=== PATIENT | male | born 1965 | race Caucasian/White ===

== ENCOUNTER → 2017-01-01 | Day surgery (SDC) | payer OTHER ==
[~2017-01-01] VITALS: Ht 177.8 cm; Wt 90.7 kg
[~2017-01-01] MED LIST: ALPRAZOLAM1 MG PO; CLARITIN10 MG PO; CYCLOBENZAPRINE5 M1 PO; DIVALPROEX SOD500 MG PO; ENABLEX15 MG PO; HYSINGLA ER30 MG PO; LEVEMIR FL100 UNIT/1 SC; LEVEMIR100 UNIT/1 SC; LEVOTHYROXIN0.112 MG PO; LISINOPRIL5 M1; MEDROL4 MG PO; MELOXICAM7.5 M1; MELOXICAM7.5 MG PO; METFORMIN1000 MG PO; MIRTAZAPINE15 MG PO; NEURONTIN300 MG PO; NORVASC 5MG TAB5 MG PO; OXY IR5 MG PO; OXYCODONE5 MG PO; PRINIVIL 5MG5 MG PO; SOMA 350MG TAB350 MG PO; TRADJENTA5 MG PO; VOLTAREN GEL1% TOP; XANAX0.5 M1; ZOCOR 40MG TAB40 MG PO; [UNRECOGNIZED DRUG - OTHER] TOP
--- NOTE | 2017-01-02 12:45 | Operative Report ---
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 The wrist the benefits and expected outcomes. She is requesting the procedure roll over the PIP joint is in a reasonable functional position. Constant trauma to the flexed joint causes him discomfort on a repeated basis. I have allow the patient. Of time to reconsider and he has presented once again requesting the procedure. No guarantees were given in regards to pain free status. We talked about infection bleeding pain numbness neuromas and he has accepted these. An informed consent was signed. He was taken to the operating placed supine on the table anesthesia was administered in the left hand was prepped and draped in usual sterile fashion. End dictation was carried out the left index finger PIP through a dorsal approach with a volar soft tissue flap. There was no acceptable joint space and a saw was used to divide at the patient's request that level. Volar soft tissue flap was then rotated into position tension-free and closed with nonabsorbable sutures.
== END ==
LOC: STS 02:03
DX: M21.242 Flexion deformity, left finger joints (principal); M24.242 Disorder of ligament, left hand; M25.542 Pain in joints of left hand; W25.XXXD Contact with sharp glass, subsequent encounter; E03.9 Hypothyroidism, unspecified; E11.9 Type 2 diabetes mellitus without complications; Z79.4 Long term (current) use of insulin; E78.5 Hyperlipidemia, unspecified; I10 Essential (primary) hypertension
CPT/HCPCS: 88305; J0690; J2250